=== PATIENT | male | born 1995 | race African-American/Black ===

== ENCOUNTER 2016-11-18 23:15 | Emergency (ER) | payer OTHER ==
[2016-10-13 14:00] VITALS: BP 115/70
== END 2016-11-19 00:55 | disposition left against medical advice (07) ==
LOC: ER 23:15
DX: R00.0 Tachycardia, unspecified (principal); R51 Headache; F41.9 Anxiety disorder, unspecified

== ENCOUNTER 2016-11-19 01:06 | Emergency (ER) | payer OTHER ==
[~2016-11-19] VITALS: Ht 162.6 cm; Wt 56.7 kg
[2016-11-19 02:09] VITALS: BP 124/80
--- NOTE | 2016-11-19 03:22 | PHYS DOC ---
Past Medical History Past Medical History: Bipolar, Schizophrenia Past Surgical History: Other Additional Past Surgical Histo: Leg sx Alcohol Use: None Drug Use: None Adult General Chief Complaint Chief Complaint: MULTIPLE COMPLAINTS [facility] HPI Patient is a 21 year old male who presents with intermittent palpitations over the past month. Had an episode today. States he thinks this is related to starting Geodon. He started a few months ago and then titrated his medication of per his psychiatrist's recommendations. This was the first time he had palpitations, so he discussed with his psychiatrist to continue at low dose. He then had palpitations a few more times, so he stopped this medication altogether 1 month ago. His palpitation episodes have decreased, but he has had more than one episode since stopping this medication so she wanted to get checked out. Palpitations last from seconds to minutes area. He gets lightheadedness and mild chest discomfort during palpitations. He specifically denies pain. He denies dyspnea, cough, fever or chills, nausea or vomiting, abdominal pain, numbness, tingly, weakness, neck pain, back pain, headache, vision changes. He has been asymptomatic for some hours now. Review of Systems Review of Systems Constitutional: Denies fever or chills [] Eyes: Denies change in visual acuity, redness, or eye pain [] HENT: Denies nasal congestion or sore throat [] Respiratory: Denies cough or shortness of breath [] Cardiovascular: No additional information not addressed in HPI [] GI: Denies abdominal pain, nausea, vomiting, bloody stools or diarrhea [] : Denies dysuria or hematuria [] Musculoskeletal: Denies back pain or joint pain [] Integument: Denies rash or skin lesions [] Neurologic: Denies headache, focal weakness or sensory changes [] Endocrine: Denies polyuria or polydipsia [] Allergies Allergies Allergies Coded Allergies Type Severity Reaction Last Updated Verified No Known Drug Allergies 01/26/15 No Physical Exam Physical Exam Constitutional: Well developed, well nourished, no acute distress, non-toxic appearance. [] HENT: Normocephalic, atraumatic, bilateral external ears normal, oropharynx moist, no oral exudates, nose normal. [] Eyes: PERRLA, EOMI. [] Neck: Normal range of motion, supple. [] Cardiovascular:Heart rate regular rhythm, no murmur [] Lungs & Thorax: Bilateral breath sounds clear to auscultation [] Abdomen: Bowel sounds normal, soft, no tenderness. [] Skin: Warm, dry, no erythema, no rash. [] Back: Normal range of motion. [] Extremities: ROM intact, no edema, no palpable cord. [] Neurologic: Alert and oriented X 3, normal motor function, normal sensory function, no focal deficits noted, cranial nerves II through XII intact. [] Psychologic: Affect normal, judgement normal, mood normal. [] Current Patient Data Vital Signs Vital Signs Date Time Temp Pulse Resp B/P Pulse Ox O2 Delivery O2 Flow Rate FiO2 11/19/16 02:09 98.5 74 16 124/80 100 Room Air 98.5 EKG EKG EKG as interpreted by me as NSR, rate 74, no ST-T changes, normal intervals, no ectopy Course & Med Decision Making Course & Med Decision Making Pertinent Labs and Imaging studies reviewed. (See chart for details) Recommend follow-up with primary care for potential halter monitoring. Return precautions given. He understands and agrees with plan. Dragon Disclaimer Dragon Disclaimer This electronic medical record was generated, in whole or in part, using a voice recognition dictation system. Departure Departure Impression: Primary Impression: Palpitations Disposition: 01 HOME, SELF-CARE Condition: STABLE Referrals: NO PCP (PCP) Patient Instructions: Palpitations, [id number] Additional Instructions: Follow-up with your primary care doctor. Return for any concerns. Jairon PACHECO MD Nov 19, 2016 03:22
--- NOTE | 2016-11-19 08:30 | EKG ---
[facility] [address] [place] [address] Test Date: 2016-11-19 Test Time: 02:03:31 Pat Name: PAGE FERNANDEZ Department: Room: Gender: M [employer]use [employer] Rec[employer]ing Worker: : 1995 Requested By: Jairon PACHECO Order Number: [id number] Reading MD: Lurdes Gerardo Measurements Intervals [place] Rate: 74 P: 54 DC: 146 QRS: 114 QRSD: 96 T: 44 QT: 336 QTc: 378 Interpretive Statements SINUS RHYTHM ABNORMAL RIGHT AXIS DEVIATION ABNORMAL ECG RI6.01 Compared to ECG 10/13/2016 12:35:55 No significant changes Electronically Signed On 11-22-2016 23:19:07 POWER SAW OPERATOR by Lurdes Gerardo
== END 2016-11-19 03:33 | disposition home or self-care (01) ==
LOC: ER 01:06
DX: R00.2 Palpitations (principal); R42 Dizziness and giddiness; R07.89 Other chest pain; F31.9 Bipolar disorder, unspecified; F20.9 Schizophrenia, unspecified
CPT/HCPCS: 93005; 99283-25

== ENCOUNTER 2016-11-25 17:47 | Emergency (ER) | payer OTHER ==
[2016-11-25 18:18] VITALS: BP 119/72
[2016-11-25] MEDS ORDERED: HYDR30CR61 TP (18:33)
--- NOTE | 2016-11-25 18:33 | PHYS DOC ---
Past Medical History Past Medical History: Bipolar, Schizophrenia Past Surgical History: Other Additional Past Surgical Histo: Leg sx Alcohol Use: None Drug Use: Marijuana Adult General Chief Complaint Chief Complaint: HEMORRHOIDS HPI HPI Patient is a 21 year old male who presents emergency room today with complaint of rectal pain and swelling that began 4 days ago. Patient denies any injury to his anus or rectum. He states he does spend quite a bit of time sitting on the toilet attempting to stool and straining. He also reports he's had intermittent abdominal cramping for the past 3-4 days that he. He denies any nausea or vomiting. He denies any black or bloody stools. Patient denies any vehicle to urinating testicular pain. Review of Systems Review of Systems Constitutional: Denies fever or chills [] Eyes: Denies change in visual acuity, redness, or eye pain [] HENT: Denies nasal congestion or sore throat [] Respiratory: Denies cough or shortness of breath [] Cardiovascular: No additional information not addressed in HPI [] GI: Denies abdominal pain, nausea, vomiting, bloody stools or diarrhea [] : Denies dysuria or hematuria [] Musculoskeletal: Denies back pain or joint pain [] Integument: Denies rash or skin lesions [] Neurologic: Denies headache, focal weakness or sensory changes [] Endocrine: Denies polyuria or polydipsia [] Allergies Allergies Allergies Coded Allergies Type Severity Reaction Last Updated Verified No Known Drug Allergies 01/26/15 No Physical Exam Physical Exam Constitutional: Well developed, well nourished, no acute distress, non-toxic appearance. [] HENT: Normocephalic, atraumatic, bilateral external ears normal, oropharynx moist, no oral exudates, nose normal. [] Eyes: PERRLA, EOMI, conjunctiva normal, no discharge. [] Neck: Normal range of motion, no tenderness, supple, no stridor. [] Cardiovascular:Heart rate regular rhythm, no murmur [] Lungs & Thorax: Bilateral breath sounds clear to auscultation [] Abdomen: Abdomen is scaphoid and soft. There are normoactive bowel sounds in all 4 quadrants. There is no palpable defect to the abdominal wall or pulsatile mass. There is no rebound or guarding. Patient does have a pea-sized, thrombosed external hemorrhoid. There is no active surrounding bleeding. There is no evidence of perirectal abscess. Skin: Warm, dry, no erythema, no rash. [] Back: No tenderness, no CVA tenderness. [] Extremities: No tenderness, no cyanosis, no clubbing, ROM intact, no edema. [] Neurologic: Alert and oriented X 3, normal motor function, normal sensory function, no focal deficits noted. [] Psychologic: Affect normal, judgement normal, mood normal. [] Current Patient Data Vital Signs Vital Signs Date Time Temp Pulse Resp B/P Pulse Ox O2 Delivery O2 Flow Rate FiO2 11/25/16 18:18 98.3 91 16 98 Room Air 98.3 EKG EKG [] Radiology/Procedures Radiology/Procedures Upright KUB is normal in appearance with a nonspecific bowel gas pattern. There are no air-fluid levels suggestive of a SBO. Course & Med Decision Making Course & Med Decision Making Pertinent Labs and Imaging studies reviewed. (See chart for details) [] Dragon Disclaimer Dragon Disclaimer This electronic medical record was generated, in whole or in part, using a voice recognition dictation system. Departure Departure Impression: Primary Impression: Hemorrhoids Disposition: HOME, SELF-CARE Condition: GOOD Referrals: NO PCP (PCP) Patient Instructions: Hemorrhoids, [id number] Additional Instructions: 1. The x-rays of your abdomen today are normal. 2. Review the discharge instructions provided for home self-care and reasons to return the emergency department. 3. Use the medication as prescribed. 4. A pamphlet is provided for you to provide information a primary care doctor' s in the area. Patient or to find a primary care doctor's office that she may call Sunday to schedule follow-up appointment. Scripts Hydrocortisone (Anusol-Hc)30 Gm Cream..g.1 Barb TP BID #30 GM Ref 1 Use until the hemorrhoid has gone down/resolved. Prov:ELVER ALLEN 11/25/16 Problem Qualifiers Primary Impression: Hemorrhoids Hemorrhoid type: unspecified Qualified Code: K64.9 - Unspecified hemorrhoids ELVER ALLEN Nov 25, 2016 18:33
--- NOTE | 2016-11-26 08:18 | RAD ---
Abdomen radiograph History: Intermittent abdominal pain. Comparison: None. Findings: AP view of abdomen. Bowel gas pattern is nonspecific, without evidence of obstruction. No definite calcifications are seen over either renal shadow. Impression: Nonspecific bowel gas pattern.
== END 2016-11-25 18:36 | disposition home or self-care (01) ==
LOC: ER 17:47
DX: K64.5 Perianal venous thrombosis (principal); F20.9 Schizophrenia, unspecified; F31.9 Bipolar disorder, unspecified; F12.10 Cannabis abuse, uncomplicated; Z98.890 Other specified postprocedural states
CPT/HCPCS: 74000; 99283

== ENCOUNTER 2017-01-17 00:09 | Emergency (ER) | payer OTHER ==
[~2017-01-17] VITALS: Ht 165.1 cm; Wt 59.0 kg
[~2017-01-17 00:09] MED LIST: HYDR30CR61 TP
[2017-01-17 00:43] VITALS: BP 115/73
[2017-01-17] MEDS ORDERED: IV NORMAL SALINE 1000ML BAG 1,000 ML IV ONE (01:00)
[2017-01-17 01:14] LABS: BASO # 0.1 x10^3/uL (0.0-0.2); BASO % 1 % (0-3); EOS % 10 % (0-3); HEMATOCRIT 41.7 % (39.0-53.0); HEMOGLOBIN 13.9 g/dL (13.0-17.5); LYMPH # 1.6 x10^3/uL (1.0-4.8); LYMPH % 38 % (24-48); MEAN CORPUSCULAR HEMOGLOBIN 33 pg (25-35); MEAN CORPUSCULAR HGB CONC 33 g/dL (31-37); MEAN CORPUSCULAR VOLUME 99 fL (79-100); MONO % 9 % (0-9); NEUT % 42 % (31-73); PLATELET COUNT 182 x10^3/uL (140-400); RED BLOOD COUNT 4.22 x10^6/uL (4.30-5.70); RED CELL DISTRIBUTION WIDTH 13.1 % (11.5-14.5); WHITE BLOOD COUNT 4.2 x10^3/uL (4.0-11.0)
[2017-01-17 01:18] LABS: CALCIUM 9.4 mg/dL (8.5-10.1); GFR 113.1; POTASSIUM 4.1 mmol/L (3.5-5.1)
[2017-01-17 01:24] LABS: ALBUMIN 4.2 g/dL (3.4-5.0); DIRECT BILIRUBIN 0.1 mg/dL (0.0-0.2); TOTAL BILIRUBIN 0.5 mg/dL (0.2-1.0); TOTAL PROTEIN 7.4 g/dL (6.4-8.2)
[2017-01-17 02:23] LABS: BILIRUBIN,URINE NEGATIVE (NEG); GLUCOSE,URINE NEGATIVE (NEG); NITRITE,URINE NEGATIVE (NEG); PH,URINE 7.5; PROTEIN,URINE NEGATIVE (NEG-TRACE); UROBILINOGEN,URINE 0.2 mg/dL (0.2 mg/dL)
[2017-01-17 02:44] LABS: BACTERIA,URINE 0 /HPF (0-FEW); RBC,URINE 0 /HPF (0-2); SQUAMOUS EPITHELIAL CELL,UR FEW /LPF; WBC,URINE 0 /HPF (0-4)
[2017-01-17] MEDS ORDERED: HYDR-2666 PO (03:04)
--- NOTE | 2017-01-17 03:04 | PHYS DOC ---
Past Medical History Past Medical History: Bipolar, Schizophrenia Past Surgical History: Other Additional Past Surgical Histo: R LEG SX Alcohol Use: Rarely Drug Use: Marijuana Adult General Chief Complaint Chief Complaint: ABDOMINAL PAIN HPI HPI 21-year-old male presenting to the emergency department today with abdominal pain. His pain is in the right upper and left upper quadrant. This started approximately 2 hours ago. It is sharp nonradiating and moderate. He denies nausea vomiting. Review of systems is negative for chest pain shortness of breath fevers chills. All other review of systems is negative unless otherwise noted in history of present illness. Review of Systems Review of Systems SEE ABOVE. Current Medications Current Medications Current Medications Medications (Trade) Dose Ordered Sig/Keeley Start Time Stop Time Status Last Admin Dose Admin Sodium Chloride (Iv Sodium Chloride 0.9% 1000ml Bag) 1,000 ml @ 1,000 mls/hr 1X ONCE 01/17/17 01:00 01/17/17 01:59 DC 01/17/17 01:02 1,000 MLS/HR Allergies Allergies Allergies Coded Allergies Type Severity Reaction Last Updated Verified No Known Drug Allergies 01/26/15 No Physical Exam Physical Exam Constitutional: Well developed, well nourished, no acute distress, non-toxic appearance. HENT: Normocephalic, atraumatic, bilateral external ears normal, oropharynx moist, no oral exudates, nose normal. [] Eyes: PERRLA, EOMI, conjunctiva normal, no discharge. Neck: Normal range of motion, no tenderness, supple, no stridor. [] Cardiovascular:Heart rate regular rhythm, no murmur Lungs & Thorax: Bilateral breath sounds clear to auscultation [] Abdomen: Soft nontender abdomen without rebound tenderness or guarding present. Negative McBurneys point. Negative Raymundo sign. No ecchymosis present. Skin: Warm, dry, no erythema, no rash. [] Back: No tenderness, no CVA tenderness. [] Extremities: No tenderness, no cyanosis, no clubbing, ROM intact, no edema. Neurologic: Alert and oriented X 3, normal motor function, normal sensory function, no focal deficits noted. [] Psychologic: Affect normal, judgement normal, mood normal. [] Current Patient Data Vital Signs Vital Signs Date Time Temp Pulse Resp B/P Pulse Ox O2 Delivery O2 Flow Rate FiO2 01/17/17 00:43 81 16 115/73 99 Room Air 01/17/17 00:20 97.7 97.7 Lab Values Laboratory Tests Test 01/17/17 00:35 01/17/17 02:13 White Blood Count 4.2x10^3/uL (4.0-11.0) Red Blood Count 4.22x10^6/uL (4.30-5.70) L Hemoglobin 13.9g/dL (13.0-17.5) Hematocrit 41.7% (39.0-53.0) Mean Corpuscular Volume 99fL (79-100) Mean Corpuscular Hemoglobin 33pg (25-35) Mean Corpuscular Hemoglobin Concent 33g/dL (31-37) Red Cell Distribution Width 13.1% (11.5-14.5) Platelet Count 182x10^3/uL (140-400) Neutrophils (%) (Auto) 42% (31-73) Lymphocytes (%) (Auto) 38% (24-48) Monocytes (%) (Auto) 9% (0-9) Eosinophils (%) (Auto) 10% (0-3) H Basophils (%) (Auto) 1% (0-3) Neutrophils # (Auto) 1.8x10^3uL (1.8-7.7) Lymphocytes # (Auto) 1.6x10^3/uL (1.0-4.8) Monocytes # (Auto) 0.4x10^3/uL (0.0-1.1) Eosinophils # (Auto) 0.4x10^3/uL (0.0-0.7) Basophils # (Auto) 0.1x10^3/uL (0.0-0.2) Sodium Level 143mmol/L (136-145) Potassium Level 4.1mmol/L (3.5-5.1) Chloride Level 105mmol/L (98-107) Carbon Dioxide Level 30mmol/L (21-32) Anion Gap 8 (6-14) Blood Urea Nitrogen 17mg/dL (8-26) Creatinine 1.0mg/dL (0.7-1.3) Estimated GFR (Cockcroft-Gault) 113.1 Glucose Level 86mg/dL (70-99) Calcium Level 9.4mg/dL (8.5-10.1) Total Bilirubin 0.5mg/dL (0.2-1.0) Direct Bilirubin 0.1mg/dL (0.0-0.2) Aspartate Amino Transferase (AST) 17U/L (15-37) Alanine Aminotransferase (ALT) 12U/L (16-63) L Alkaline Phosphatase 54U/L (46-116) Total Protein 7.4g/dL (6.4-8.2) Albumin 4.2g/dL (3.4-5.0) Lipase 164U/L (73-393) Urine Collection Type Unknown Urine Color Yellow Urine Clarity Clear Urine pH 7.5 Urine Specific [place] 1.015 Urine Protein Negativemg/dL (NEG-TRACE) Urine Glucose (UA) Negativemg/dL (NEG) Urine Ketones (Stick) Negativemg/dL (NEG) Urine Blood Negative (NEG) Urine Nitrite Negative (NEG) Urine Bilirubin Negative (NEG) Urine Urobilinogen Dipstick 0.2mg/dL (0.2 mg/dL) Urine Leukocyte Esterase Negative (NEG) Urine RBC 0/HPF (0-2) Urine WBC 0/HPF (0-4) Urine Squamous Epithelial Cells Few/LPF Urine Bacteria 0/HPF (0-FEW) Urine Mucus Mod/LPF Laboratory Tests 01/17/17 00:35 Laboratory Tests 01/17/17 00:35 EKG EKG [] Radiology/Procedures Radiology/Procedures [] Course & Med Decision Making Course & Med Decision Making Pertinent Labs and Imaging studies reviewed. (See chart for details) [] 21-year-old male presenting to the emergency department with right upper and left upper quadrant abdominal pain. Vital signs afebrile normal heart rate. Normal vital signs. Pertinent Physical exam showed a nontender gallbladder and nontender appendix. The patient was given IV fluids in the emergency department. He was feeling much better on reexamination. Repeat abdominal examination continues show a nontender abdomen. CBC unremarkable. UA unremarkable. Chemistry panel unremarkable. Patient subsequent discharged home with oral hydrocodone to follow-up with his primary care physician over the next 2-3 days if his symptoms continued. Dragon Disclaimer Dragon Disclaimer This electronic medical record was generated, in whole or in part, using a voice recognition dictation system. Departure Departure Impression: Primary Impression: Abdominal pain Disposition: HOME, SELF-CARE Condition: STABLE Referrals: NO PCP (PCP) EDDIE,KRISTYN R MD Patient Instructions: Abdominal Pain Additional Instructions: Thank you for allowing us to participate in your care today. Followup with your primary care physician in 3 days if your symptoms do not improve. If you do not have a primary care provider you can ask for a list of our primary care providers. Return to the emergency department you have any new or concerning findings. This should be evaluated by the primary care physician and any necessary consulting services for continued management within a few days after discharge. Return to emergency room if you have any new or concerning symptoms including but not limited to fever, chills, nausea, vomiting, intractable pain, any new rashes, chest pain, shortness of air, uncontrolled bleeding, difficulty breathing, and/or vision loss. You may have been prescribed medication that can change in your level of thinking and ability to operate machinery. These medications include hydrocodone and Ativan. Also, Benadryl has been known to do this as well. Be sure to check with your pharmacist and ask if the medications you've prescribed can affect your level of consciousness. I recommend not operating heavy machinery or driving while on medication such as these. Scripts Hydrocodone Bit/Acetaminophen (Hydrocodone-Apap 5-325 )1 Each Tablet1 Tab PO PRN Q6HRS PRN PAIN #4 TAB Be careful as this medication may cause you to be drowsy or tired. Do not drive on this medication. Prov:COLIN BECK MD 01/17/17 COLIN BECK MD Jan 17, 2017 03:04
--- NOTE | 2017-01-17 06:45 | EKG ---
[facility] [address] [place] [address] Test Date: 2017-01-17 Test Time: 01:07:12 Pat Name: PAGE FERNANDEZ Department: Room: Gender: M Tender Labor: : 1995 Requested By: COLIN BECK Order Number: [id number] Reading MD: Measurements Intervals [place] Rate: 70 P: 48 SD: 168 QRS: 114 QRSD: 90 T: 31 QT: 340 QTc: 370 Interpretive Statements SINUS RHYTHM ABNORMAL RIGHT AXIS DEVIATION QRS(T) CONTOUR ABNORMALITY CONSIDER ANTEROSEPTAL MYOCARDIAL DAMAGE RI6.01 Unconfirmed report No previous ECG available for comparison
== END 2017-01-17 03:19 | disposition home or self-care (01) ==
LOC: ER 00:09
DX: R10.11 Right upper quadrant pain (principal); R10.12 Left upper quadrant pain; F12.10 Cannabis abuse, uncomplicated
CPT/HCPCS: 36415; 80048; 80076; 81001; 83690; 85027; 93005; 96360; 99285; J7030

== ENCOUNTER 2017-05-27 11:15 | Emergency (ER) | payer OTHER ==
[~2017-05-27] VITALS: Ht 165.1 cm; Wt 60.8 kg
[2017-05-27 11:15] VITALS: BP 125/55
[~2017-05-27 11:15] MED LIST changes: +HYDR-2758 PO
[2017-05-27] MEDS ORDERED: LIDOCAINE 1% / SOD BICARB 8.4% 20 ML VIAL. IJ ONE (11:30)
--- NOTE | 2017-05-27 11:53 | PHYS DOC ---
Past Medical History Past Medical History: Bipolar, Schizophrenia Past Surgical History: Other Additional Past Surgical Histo: R LEG SX Alcohol Use: None Drug Use: Marijuana Adult General Chief Complaint Chief Complaint: FOREIGNBODY EAR HPI HPI Patient is a 21 year old male with a history of bipolar and schizophrenia who presents today with a cockroach in the left ear that he noted this morning. Review of Systems Review of Systems Constitutional: Denies fever or chills [] Eyes: Denies change in visual acuity, redness, or eye pain [] HENT: cockroach in the left ear Musculoskeletal: Denies back pain or joint pain [] Integument: Denies rash or skin lesions [] Neurologic: Denies headache, focal weakness or sensory changes [] Endocrine: Denies polyuria or polydipsia [] Current Medications Current Medications Current Medications Medications (Trade) Dose Ordered Sig/Keeley Start Time Stop Time Status Last Admin Dose Admin Lidocaine/Sodium Bicarbonate (Buffered Lidocaine 1%) 20 ml 1X ONCE 05/27/17 11:30 05/27/17 11:31 DC 05/27/17 11:51 20 ML Allergies Allergies Allergies Coded Allergies Type Severity Reaction Last Updated Verified No Known Drug Allergies 01/26/15 No Physical Exam Physical Exam Constitutional: Well developed, well nourished, no acute distress, non-toxic appearance. [] HENT: Normocephalic, atraumatic, bilateral external ears normal, oropharynx moist, no oral exudates, nose normal. [] Left ear canal with a foreign object suspicious of a cockroach Skin: Warm, dry, no erythema, no rash. [] Back: No tenderness, no CVA tenderness. [] Extremities: No tenderness, no cyanosis, no clubbing, ROM intact, no edema. [] Neurologic: Alert and oriented X 3, normal motor function, normal sensory function, no focal deficits noted. [] Psychologic: Affect normal, judgement normal, mood normal. [] Current Patient Data Vital Signs Vital Signs Date Time Temp Pulse Resp B/P (MAP) Pulse Ox O2 Delivery O2 Flow Rate FiO2 05/27/17 11:15 98.2 81 16 98 Room Air 98.2 EKG EKG [] Radiology/Procedures Radiology/Procedures Indication: Foreign body in the left ear canal Procedure: The area of the foreign body was the left ear canal. Local anesthesia over the foreign body site was 1% buffered lidocaine. Forceps were used to successfully remove a cockroach from the left ear canal. No more foreign objects were in the canal. The patient tolerated the procedure very well Complications:none Course & Med Decision Making Course & Med Decision Making Pertinent Labs and Imaging studies reviewed. (See chart for details) Patient is in the ED to have a cockroach removed from the left ear canal. See procedure note. Cockroach was removed successfully. Patient was discharged in stable condition. Dragon Disclaimer Dragon Disclaimer This electronic medical record was generated, in whole or in part, using a voice recognition dictation system. Departure Departure Impression: Primary Impression: Foreign body in left ear Disposition: HOME, SELF-CARE Condition: STABLE Referrals: NO PCP (PCP) Follow-up with your doctor in 1-2 weeks as needed Patient Instructions: Ear Foreign Body, [id number] Additional Instructions: You were seen for a foreign body to the left ear. We removed a cockroach from it. Take Tylenol/Motrin for pain. Follow-up with your doctor in 1-2 weeks. Come back to the ED at any point you have concerning symptoms. Problem Qualifiers Primary Impression: Foreign body in left ear Encounter type: initial encounter Qualified Codes: T16.2XXA - Foreign body in left ear, initial encounter RODRIGO MCKEON APRN May 27, 2017 11:53
== END 2017-05-27 12:00 | disposition home or self-care (01) ==
LOC: ER 11:15
DX: T16.2XXA Foreign body in left ear, initial encounter (principal); F12.10 Cannabis abuse, uncomplicated; F20.9 Schizophrenia, unspecified; F31.9 Bipolar disorder, unspecified; X58.XXXA Exposure to other specified factors, initial encounter; Y93.89 Activity, other specified; Y92.89 Other specified places as the place of occurrence of the external cause; Y99.8 Other external cause status
CPT/HCPCS: 69200; 99284-25

== ENCOUNTER 2017-06-07 23:29 | Emergency (ER) | payer OTHER ==
[~2017-06-07] VITALS: Ht 162.6 cm; Wt 59.0 kg
[2017-06-08] VITALS: BP 120/75
--- NOTE | 2017-06-08 00:07 | PHYS DOC ---
Past Medical History Past Medical History: Bipolar, Schizophrenia Past Surgical History: Other Additional Past Surgical Histo: R LEG SX Alcohol Use: None Drug Use: Marijuana Adult General Chief Complaint Chief Complaint: FOOT INJURY PAIN [facility] HPI Patient is a 21 year old male with right foot pain for one hour. No known injury. Review of Systems Review of Systems Constitutional: Denies fever or chills [] Eyes: Denies change in visual acuity, redness, or eye pain [] HENT: Denies nasal congestion or sore throat [] Respiratory: Denies cough or shortness of breath [] Cardiovascular: No additional information not addressed in HPI [] GI: Denies abdominal pain, nausea, vomiting, bloody stools or diarrhea [] : Denies dysuria or hematuria [] Musculoskeletal: Right foot pain Integument: Denies rash or skin lesions [] Neurologic: Denies headache, focal weakness or sensory changes [] Endocrine: Denies polyuria or polydipsia [] Allergies Allergies Allergies Coded Allergies Type Severity Reaction Last Updated Verified No Known Drug Allergies 01/26/15 No Physical Exam Physical Exam Constitutional: Well developed, well nourished, no acute distress, non-toxic appearance. [] Skin: Warm, dry, no erythema, no rash. [] Back: No tenderness, no CVA tenderness. [] Extremities: Right foot, and mild tenderness over the plantar calcaneonavicular ligament. He does have full range of motion without difficulty. Neurovascular intact distally. Remainder of right foot exam unremarkable. Current Patient Data Vital Signs Vital Signs Date Time Temp Pulse Resp B/P (MAP) Pulse Ox O2 Delivery O2 Flow Rate FiO2 06/08/17 00:00 98.5 85 18 98 Room Air 98.5 EKG EKG [] Radiology/Procedures Radiology/Procedures Rai bandage applied to the right lower extremity by nursing staff. Patient tolerated well. [] Course & Med Decision Making Course & Med Decision Making Pertinent Labs and Imaging studies reviewed. (See chart for details) [] Dragon Disclaimer Dragon Disclaimer This electronic medical record was generated, in whole or in part, using a voice recognition dictation system. Departure Departure Impression: Primary Impression: Foot sprain Disposition: 01 HOME, SELF-CARE Condition: STABLE Referrals: NO PCP (PCP) [facility] Patient Instructions: Foot Sprain Scripts Naproxen (NAPROSYN) 500 Mg Tablet 500 MG PO BID Y for PAIN, #20 TAB Prov: MER VANESSA APRN 06/08/17 Problem Qualifiers Primary Impression: Foot sprain Encounter type: initial encounter Laterality: right Qualified Codes: S93.601A - Unspecified sprain of right foot, initial encounter MER VANESSA BACON SKIN LIFTER Jun 08, 2017 00:07
[2017-06-08] MEDS ORDERED: NAPR500T PO (00:13)
== END 2017-06-08 00:27 | disposition home or self-care (01) ==
LOC: ER 23:29
DX: S93.601A Unspecified sprain of right foot, initial encounter (principal); F12.10 Cannabis abuse, uncomplicated; X58.XXXA Exposure to other specified factors, initial encounter; Y93.89 Activity, other specified; Y92.89 Other specified places as the place of occurrence of the external cause; Y99.8 Other external cause status
CPT/HCPCS: 99282

== ENCOUNTER 2017-07-12 22:26 | Emergency (ER) | payer OTHER ==
[~2017-07-12 22:26] MED LIST changes: +NAPR500T PO
[2017-07-12 22:53] VITALS: BP 123/70
--- NOTE | 2017-07-12 22:56 | PHYS DOC ---
Past Medical History Past Medical History: No Pertinent History Past Surgical History: No Surgical History Additional Past Surgical Histo: R LEG SX Alcohol Use: None Drug Use: None Adult General Chief Complaint Chief Complaint: EARACHE/EAR PAIN [facility] HPI Patient is a 21 year old male presents to the emergency department with concerns of a foreign body in the left ear. He states that he felt something crawling around and now has some fullness sensation in the ear. Review of Systems Review of Systems Constitutional: Denies fever or chills [] Eyes: Denies change in visual acuity, redness, or eye pain [] HENT: Denies nasal congestion or sore throat, foreign body sensation left ear[] Respiratory: Denies cough or shortness of breath [] Cardiovascular: No additional information not addressed in HPI [] Allergies Allergies Allergies Coded Allergies Type Severity Reaction Last Updated Verified No Known Drug Allergies 01/26/15 No Physical Exam Physical Exam Constitutional: Well developed, well nourished, no acute distress, non-toxic appearance. [] HENT: Normocephalic, atraumatic, bilateral external ears normal, after external canal with an insect. The tympanic membrane is intact. Oropharynx moist, no oral exudates, nose normal. [] Eyes: PERRLA, EOMI, conjunctiva normal, no discharge. [] Neck: Normal range of motion, no tenderness, supple, no stridor. [] Cardiovascular:Heart rate regular rhythm, no murmur [] Lungs & Thorax: Bilateral breath sounds clear to auscultation [] Current Patient Data Vital Signs Vital Signs Date Time Temp Pulse Resp B/P (MAP) Pulse Ox O2 Delivery O2 Flow Rate FiO2 07/12/17 22:53 98.1 89 20 98 Room Air 98.1 EKG EKG [] Radiology/Procedures Radiology/Procedures Procedure note: Left ear irrigated by nursing staff. Foreign body removed. Tympanic membrane intact post removal. The external canal is excoriated. I'll place patient on neomycin otic. He's return to the emergency department his symptoms or concerns. I spoke with the patient and/or care givers. I've explained the patient's condition, diagnosis and treatment plan based on the information available to me at this time. I've answered the patient's and/or care givers questions and a dressing concerns. The patient and/or care givers have as good an understanding of the patient's diagnosis, condition and treatment plan as can be expected at this time. Vital signs stable. The patient's condition is stable and appropriate for discharge from the emergency department. The patient will pursue further outpatient evaluation with the primary care physician or other designated or consulting physician as outlined in the discharge instructions. The patient and/or care givers are agreeable to this plan of care and follow-up instructions and explained in detail. The patient and /or care givers have received these instructions in written format and have expressed an understanding of the discharge instructions. The patient and/or caregivers are aware that any significant change in condition or worsening of symptoms should prompt immediate return to this closest emergency department or call to 911.[] Course & Med Decision Making Course & Med Decision Making Pertinent Labs and Imaging studies reviewed. (See chart for details) [] Dragon Disclaimer Dragon Disclaimer This electronic medical record was generated, in whole or in part, using a voice recognition dictation system. Departure Departure Impression: Primary Impression: Ear foreign body Disposition: HOME, SELF-CARE Condition: STABLE Referrals: NO PCP (PCP) [facility] Patient Instructions: Ear Foreign Body Scripts Neomycin/Polymyxin B Sulf/Hc ([id number] EAR SOLN) 10 Ml Solution 1 ML LEFT EAR QID for 5 Days, #1 MISC Prov: MER VANESSA APRN 07/12/17 Problem Qualifiers Primary Impression: Ear foreign body Encounter type: initial encounter Laterality: left Qualified Codes: T16.2XXA - Foreign body in left ear, initial encounter MER VANESSA APRN Jul 12, 2017 22:56
[2017-07-12] MEDS ORDERED: NEOM10SO7 LEFT EAR (23:20)
== END 2017-07-12 23:24 | disposition home or self-care (01) ==
LOC: ER 22:26
DX: T16.2XXA Foreign body in left ear, initial encounter (principal); X58.XXXA Exposure to other specified factors, initial encounter; Y93.89 Activity, other specified; Y99.8 Other external cause status; Y92.89 Other specified places as the place of occurrence of the external cause
CPT/HCPCS: 99284

== ENCOUNTER 2017-07-12 23:58 | Emergency (ER) | payer OTHER ==
[~2017-07-12 23:58] MED LIST changes: +NEOM10SO7 LEFT EAR
[2017-07-13 00:15] VITALS: BP 123/70
--- NOTE | 2017-07-13 00:23 | PHYS DOC ---
Past Medical History Past Medical History: No Pertinent History Past Surgical History: Other Additional Past Surgical Histo: R LEG SX Alcohol Use: None Drug Use: None Adult General Chief Complaint Chief Complaint: FOREIGNBODY EAR [facility] Patient is a 21 year old male presenting to the emergency department with complaints of persistent sensation of foreign body in the left ear. Patient was evaluated within the last 15 minutes in the emergency department and an insect was removed from the external canal left ear. Patient at that visit continued to complain of sensation of a foreign body which was not visible in the ear with multiple re-evaluations. Patient was discharged and immediately went out to the triage desk and checked back in for sensation of foreign body in the left ear. Review of Systems Review of Systems Constitutional: Denies fever or chills [] Eyes: Denies change in visual acuity, redness, or eye pain [] HENT: Denies nasal congestion or sore throat, sensation foreign body left ear [] Respiratory: Denies cough or shortness of breath [] Cardiovascular: No additional information not addressed in HPI [] GI: Denies abdominal pain, nausea, vomiting, bloody stools or diarrhea [] : Denies dysuria or hematuria [] Musculoskeletal: Denies back pain or joint pain [] Integument: Denies rash or skin lesions [] Neurologic: Denies headache, focal weakness or sensory changes [] Endocrine: Denies polyuria or polydipsia [] Allergies Allergies Allergies Coded Allergies Type Severity Reaction Last Updated Verified No Known Drug Allergies 01/26/15 No Physical Exam Physical Exam Constitutional: Well developed, well nourished, no acute distress, non-toxic appearance. [] HENT: Normocephalic, atraumatic, bilateral external ears normal, oropharynx moist, no oral exudates, nose normal. Left external canal has remained unchanged from his previous visit 15 minutes ago. The external canal is slightly excoriated the tympanic membranes intact, they are is no visible foreign body.[] Eyes: PERRLA, EOMI, conjunctiva normal, no discharge. [] Neck: Normal range of motion, no tenderness, supple, no stridor. [] Cardiovascular:Heart rate regular rhythm, no murmur [] Lungs & Thorax: Bilateral breath sounds clear to auscultation [] Abdomen: Bowel sounds normal, soft, no tenderness, no masses, no pulsatile masses. [] Skin: Warm, dry, no erythema, no rash. [] Back: No tenderness, no CVA tenderness. [] Extremities: No tenderness, no cyanosis, no clubbing, ROM intact, no edema. [] Neurologic: Alert and oriented X 3, normal motor function, normal sensory function, no focal deficits noted. [] Psychologic: Affect normal, judgement normal, mood normal. [] EKG EKG [] Radiology/Procedures Radiology/Procedures [] Course & Med Decision Making Course & Med Decision Making Pertinent Labs and Imaging studies reviewed. (See chart for details) [] Dragon Disclaimer Dragon Disclaimer This electronic medical record was generated, in whole or in part, using a voice recognition dictation system. Departure Departure Impression: Primary Impression: Feared condition not demonstrated Disposition: 01 HOME, SELF-CARE Condition: STABLE Referrals: NO PCP (PCP) [facility], MER COX APRN Jul 13, 2017 00:23
== END 2017-07-13 00:32 | disposition home or self-care (01) ==
LOC: ER 23:58
DX: Z71.1 Person with feared health complaint in whom no diagnosis is made (principal); T16.2XXA Foreign body in left ear, initial encounter; X58.XXXA Exposure to other specified factors, initial encounter; Y93.89 Activity, other specified; Y92.89 Other specified places as the place of occurrence of the external cause; Y99.8 Other external cause status
CPT/HCPCS: 99281

== ENCOUNTER 2020-02-18 13:03 | Emergency (ER) | payer MEDICAID, OTHER ==
[~2020-02-18] VITALS: Ht 165.1 cm; Wt 56.8 kg
[~2020-02-18 13:03] MED LIST changes: -HYDR-2758 PO; +HYDR-2761 PO; +NAPR-683 PO; -NAPR500T PO
[2020-02-18 13:15] VITALS: BP 125/66
[2020-02-18] MEDS ORDERED: LIDO30CR TP (14:11)
[2020-02-18] MEDS ORDERED: HYDR30CR61 TP (14:11)
[2020-02-18] MEDS ORDERED: POLY17PO29 PO (14:11)
--- NOTE | 2020-02-18 14:11 | PHYS DOC ---
Past Medical History Past Medical History: No Pertinent History Past Surgical History: Other Additional Past Surgical Histo: R LEG SX Smoking Status: Never Smoker Alcohol Use: None Drug Use: None General Adult EDM: Chief Complaint: HEMORRHOIDS HPI: HPI: Patient is a 24 year old male who presents to the ED today complaining of hemorrhoids for 5 days. Patient reports the hemorrhoid already opened up. Denies any fever. Denies any abdominal pain, nausea vomiting. Patient has history of hemorrhoids. Review of Systems: Review of Systems: Constitutional: Denies fever or chills. [] GI: Reports rectal hemorrhoid. Denies abdominal pain, nausea, vomiting, bloody stools or diarrhea. [] Musculoskeletal: Denies back pain or joint pain. [] Integument: Denies rash. [] Neurologic: Denies headache, focal weakness or sensory changes. [] Psychiatric: Denies depression or anxiety. [] Heart Score: Risk Factors: Risk Factors: DM, Current or recent (<one month) smoker, HTN, HLP, family history of CAD, obesity. Risk Scores: Score 0 - 3: 2.5% MACE over next 6 weeks - Discharge Home Score 4 - 6: 20.3% MACE over next 6 weeks - Admit for Clinical Observation Score 7 - 10: 72.7% MACE over next 6 weeks - Early Invasive Strategies Allergies: Allergies: Allergies Coded Allergies Type Severity Reaction Last Updated Verified No Known Drug Allergies 01/26/15 No Physical Exam: PE: Constitutional: Well developed, well nourished, no acute distress, non-toxic appearance. [] Abdomen: Bowel sounds normal, soft, no tenderness, no masses, no pulsatile masses. [] Male exam: Deferred per patient choice Skin: Warm, dry, no erythema, no rash. [] Back: No tenderness, no CVA tenderness. [] Extremities: No tenderness, no cyanosis, no clubbing, ROM intact, no edema. [] Neurologic: Alert and oriented X 3, normal motor function, normal sensory function, no focal deficits noted. [] Psychologic: Affect normal, judgement normal, mood normal. [] EKG: EKG: [] Radiology/Procedures: Radiology/Procedures: [] Course & Med Decision Making: Course & Med Decision Making Pertinent Labs and Imaging studies reviewed. (See chart for details) This is a 24-year-old male patient presenting to the ED today complaining of a hemorrhoid. Discussed remedies for managing hemorrhoids including increasing dietary fiber intake, water intake. Sitz bath recommended. Given prescription for docusate and MiraLAX. Given prescription for Anusol cream. Given prescription for lidocaine cream. Provided general surgeon for follow-up. Bernice Disclaimer: Bernice Disclaimer: This electronic medical record was generated, in whole or in part, using a voice recognition dictation system. Departure Departure Impression: Primary Impression: Hemorrhoids Qualified Codes: K64.9 - Unspecified hemorrhoids Disposition: HOME, SELF-CARE Condition: STABLE Referrals: NO PCP (PCP) BEN UMAÑA MD follow up in 1 week Patient Instructions: Hemorrhoids Additional Instructions: You were seen for hemorrhoids. Increase your dietary fiber intake, increase your water intake, use sitz bath as discussed. Take MiraLAX or stool softener every day, this will help reduce hard stools which will cause constipation. Use the prescribed creams as ordered. Scripts Lidocaine/Prilocaine (LIDOCAINE-PRILOCAINE CREAM) 30 Gm Cream..g. 1 YUNIEL TP UD, #30 GM 1 Refill Prov: RODRIGO MCKEON APRN 02/18/20 Polyethylene Glycol 3350 (MIRALAX) 17 Gm Powd.pack 1 PACKET PO DAILY for constipation for 2 Days, #2 PACKET 0 Refills dissolve in water Prov: RODRIGO MCKEON APRN 02/18/20 Hydrocortisone (ANUSOL-HC) 30 Gm Cream..g. 1 YUNIEL TP TID for 10 Days, #30 GM 0 Refills Prov: RODRIGO MCKEON APRN 02/18/20 RODRIGO MCKEON APRN Feb 18, 2020 14:11
== END 2020-02-18 14:10 | disposition home or self-care (01) ==
LOC: ER 13:03
DX: K64.9 Unspecified hemorrhoids (principal); Z98.890 Other specified postprocedural states
CPT/HCPCS: 99283